=== PATIENT | female | born 1960 | race Caucasian/White ===

== ENCOUNTER → 2019-05-25 | Outpatient (CLI) | payer OTHER | END | disposition home or self-care (01) | LOC: CFH 11:47 | PROVIDERS: ATTEND Internal Medicine Cardiovascular Disease | DX: I25.9 Chronic ischemic heart disease, unspecified (principal); R94.31 Abnormal electrocardiogram [ECG] [EKG] | CPT/HCPCS: 78452; 93017; A9502 ==

== ENCOUNTER 2019-06-09 09:26 | Day surgery (SDC) | payer OTHER ==
[~2019-06-09] VITALS: Ht 160 cm; Wt 65.9 kg
[2019-06-09] MEDS ORDERED: LEVO100T PO (10:12)
[2019-06-09] MEDS ORDERED: ESTR1.25 PO (10:12)
[2019-06-09] MEDS ORDERED: IBUP-1623 PO (10:12)
[2019-06-09] MEDS ORDERED: LORA-446 PO (10:12)
[2019-06-09] MEDS ORDERED: CYAN-27 PO (10:12)
[2019-06-09 10:19] VITALS: BP 126/71
[2019-06-09 10:21] LABS: BASOPHILS # (AUTO) 0.02 x10^3/uL (0-0.1); BASOPHILS % (AUTO) 0 % (0-1); EOSINOPHILS # (AUTO) 0.13 x10^3/uL (0-0.4); EOSINOPHILS % (AUTO) 2 % (1-7); LYMPHOCYTES # (AUTO) 2.59 x10^3/uL (1-3.4); LYMPHOCYTES % (AUTO) 40 % (22-44); MD NO; MEAN CORPUSCULAR HEMOGLOBIN 26.9 pg (27.0-34.8); MEAN CORPUSCULAR HGB CONC 32.3 g/dL (32.4-35.8); MEAN CORPUSCULAR VOLUME 83.4 fL (80-100); MEAN PLATELET VOLUME 7.4 fL (7.4-10.4); MONOCYTES # (AUTO) 0.31 x10^3/uL (0.2-0.8); MONOCYTES % (AUTO) 5 % (2-9); NEUTROPHILS # (AUTO) 3.43 x10^3/uL (1.8-6.8); NEUTROPHILS % (AUTO) 53 % (42-75); PLATELET COUNT 428 x10^3/uL (130-400); RED BLOOD COUNT 4.91 x10^6/uL (3.82-5.3); RED CELL DISTRIBUTION WIDTH 13.8 % (9.6-15.2)
[2019-06-09 10:31] LABS: ANION GAP 6 mmol/L (5-15); CALCIUM 8.6 mg/dL (8.5-10.1); CHLORIDE 108 mmol/L (98-107)
[2019-06-09] MEDS ORDERED: HEPARIN 1,000 UNITS/ML, 10ML ONE (11:35)
[2019-06-09] MEDS ORDERED: VERAPAMIL 2.5 MG/ML, 2ML ONE (11:35)
[2019-06-09] MEDS ORDERED: MIDAZOLAM 1 MG/ML, 2ML ONE (11:35)
[2019-06-09] MEDS ORDERED: FENTANYL PF 100 MCG/2ML ONE (11:35)
[2019-06-09] MEDS ORDERED: LIDOCAINE-MPF 1%, 5ML ONE (11:35)
[2019-06-09] MEDS ORDERED: SODIUM CHLORIDE 0.9% 1,000 ML IV SCH (12:28)
== END 2019-06-09 14:02 | disposition home or self-care (01) ==
LOC: CACL 09:26
PROVIDERS: ATTEND Internal Medicine Cardiovascular Disease
DX: R00.2 Palpitations (principal); I25.119 Atherosclerotic heart disease of native coronary artery with unspecified angina pectoris; I25.83 Coronary atherosclerosis due to lipid rich plaque; E03.9 Hypothyroidism, unspecified; Z79.890 Hormone replacement therapy; Z79.1 Long term (current) use of non-steroidal anti-inflammatories (NSAID); Z79.899 Other long term (current) drug therapy; Z88.0 Allergy status to penicillin; Z82.49 Family history of ischemic heart disease and other diseases of the circulatory system; Z83.3 Family history of diabetes mellitus; Z82.3 Family history of stroke
CPT/HCPCS: 36415; 80048; 85025; 93458; 99156; C1769; C1894; J2250; J3010; Q9967; J1644